=== PATIENT | male | born 1955 | race African-American/Black ===

== ENCOUNTER 2025-05-27 14:08 | Emergency (ER) | payer OTHER, MEDICAID ==
[~2025-05-27] VITALS: Ht 177.8 cm; Wt 100.0 kg
[~2025-05-27 14:08] MED LIST: AMAN100T PO; AMLO10TA80 PO; APIX5TAB PO; ASPI-1406 PO; ATOR-2 PO; ATOR40TA70 PO; CARV25TA47 PO; CLOP-31 PO; FURO80TA3 PO; GABA-529 PO; LISI20TA31 PO; METF-414 PO; METH4TAB95 MT; METO-385 MT; TAMS0.4C31 PO
[2025-05-27 14:13] VITALS: O2SAT 98
[2025-05-27 15:11] LABS: BASOPHILS % 1.2 % (0.0-2.0); EOSINOPHILS % 1.3 % (0.0-5.0); HEMATOCRIT. 28.8 % (42.0-52.0); HEMOGLOBIN. 9.1 g/dL (14.0-18.0); LYMPHOCYTES % 9.5 % (20.0-50.0); MEAN PLATELET VOLUME 9.5 fl (7.4-10.4); MONOCYTES % 7.6 % (2.0-8.0); NEUTROPHILS % 80.4 % (40.0-76.0); PLATELET 58 x1000/uL (130-400); RED BLOOD CELL COUNT 2.90 mill/uL (4.7-6.1); RED CELL DISTRIBUTION WIDTH 19.6 % (11.6-14.6)
[2025-05-27 15:27] LABS: UREA NITROGEN BLOOD 16 mg/dL (9-23)
[2025-05-27 15:28] LABS: ASPARTATE AMINOTRANSFERASE 30 IU/L (<34); TROPONIN I HIGH SENSITIVITY 11 ng/L (3.0-53)
[2025-05-27 15:29] LABS: BILIRUBIN DIRECT 0.2 mg/dL (<=3.0); BILIRUBIN TOTAL 0.8 mg/dL (0.1-1.0); PROTEIN TOTAL 5.7 g/dL (6.0-8.3)
[2025-05-27 15:39] LABS: CREATININE 5.5 mg/dL (0.6-1.3)
[2025-05-27 16:44] VITALS: TEMP 37.1
[2025-05-27 17:18] VITALS: BP 141/85; PULSE 67; RESP 19; O2SAT 98
== END 2025-05-27 17:18 | disposition short-term general hospital (02) ==
LOC: ER 14:08 → CANBEDREQ 16:36 → ER 17:18
DX: R55 Syncope and collapse (principal); I13.2 Hypertensive heart and chronic kidney disease with heart failure and with stage 5 chronic kidney disease, or end stage renal disease; N18.6 End stage renal disease; I48.91 Unspecified atrial fibrillation; J44.9 Chronic obstructive pulmonary disease, unspecified; Z98.890 Other specified postprocedural states; Z79.01 Long term (current) use of anticoagulants; Z79.02 Long term (current) use of antithrombotics/antiplatelets; Z79.82 Long term (current) use of aspirin; Z79.84 Long term (current) use of oral hypoglycemic drugs; Z79.899 Other long term (current) drug therapy; Z99.2 Dependence on renal dialysis; Z86.73 Personal history of transient ischemic attack (TIA), and cerebral infarction without residual deficits; Z88.6 Allergy status to analgesic agent
CPT/HCPCS: 36415; 71045; 80048; 80076; 83880; 84484; 85025; 86850; 86900; 93005; 99285